=== PATIENT | female | born 1955 | race Caucasian/White ===

== ENCOUNTER → 2016-06-08 | Outpatient (CLI) | payer OTHER ==
--- NOTE | 2016-06-08 10:16 | CT ---
EXAMINATION TYPE: CT sinus wo con DATE OF EXAM: 06/08/2016 9:57 AM COMPARISON: NONE HISTORY: 61 year-old female chronic sinusitis, pain CT DLP: 622.3 mGycm Automated exposure control for dose reduction was used. TECHNIQUE: Noncontrast axial views of the paranasal sinuses were obtained. Coronal reconstructions pe rformed. FINDINGS: There is mild mucosal thickening within the right sphenoid sinus. Trace mucosal thickening along the roof of the left maxillary sinus. Otherwise, the paranasal sinuses are clear. There is no air-fluid level. Reactive neville- osteogenesis is not seen. There is no destruction of the osseous thompson of the paranasal sinuses. The osteomeatal complexes are patent. However, ostia are noted involving both medial right maxillary sinus thompson. These could be on a postsurgical or congenital basis, refer to axial image 13 and avina l image 17. On the left, there is some mucosal thickening involving the inferior turbinate which proj ects through the ostium. Slight rightward nasal septal deviation. The imaged brain, sella, skull base and orbits are normal in appearance. Visualized mastoid air cells and middle ear cavities are well pneumatized. IMPRESSION: 1. Bilateral ostia along the inferior medial maxillary sinus thompson could be on a postsurgical or barry enital basis. Refer to axial image 13 and coronal image 17. 2. Mild mucosal thickening right sphenoid sinus and trace mucosal thickening along the roof of the le ft maxillary sinus. Otherwise, no significant paranasal sinus disease. 3. Slight rightward nasal septal deviation.
--- NOTE | 2016-06-08 11:38 | XR ---
EXAMINATION TYPE: XR chest 2V DATE OF EXAM: 06/08/2016 10:46 AM COMPARISON: EXAMINATION TYPE: XR chest 2V DATE OF EXAM: 06/08/2016 10:46 AM COMPARISON: NONE HISTORY: Cough TECHNIQUE: Frontal and lateral views of the chest are obtained. FINDINGS: There is no focal air space opacity, pleural effusion, or pneumothorax seen. The cardiac silhouette size is within normal limits. The osseous structures are intact. Hyperinflation suggests COPD. IMPRESSION: No acute cardiopulmonary process. TECHNIQUE: PA and lateral views submitted. HISTORY: FINDINGS: The lungs are clear and there is no pneumothorax, pleural effusion, or focal pneumonia. IMPRESSION: 1. No acute process.
--- NOTE | 2016-06-08 18:08 | FL ---
EXAMINATION: Cervical and Thoracic Esophagram DATE OF EXAM: 06/08/2016 10:47 AM CLINICAL INDICATION: 61-year-old female with chronic cough, hoarseness, laryngitis, polyps on direct visualization. Dysphagia. COMPARISON: None Total Fluoroscopy Time: 1 minute. FINDINGS: The swallowing mechanism is normal and hypopharyngeal anatomy is preserved. The cervical and thoracic portions have a normal course and caliber and normal motility. The mucosa is normal and no persistent filling defect is encountered. No hiatal hernia is present. No gastroesophageal reflux could not be elicited with Valsalva or positional maneuvers. IMPRESSION: Unremarkable double contrast esophagram.
== END | disposition home or self-care (01) ==
LOC: RADCTMAIN 09:26
PROVIDERS: ATTEND Otolaryngology
DX: J34.89 Other specified disorders of nose and nasal sinuses (principal); J34.2 Deviated nasal septum; J32.9 Chronic sinusitis, unspecified; R13.10 Dysphagia, unspecified; R49.0 Dysphonia; R05 Cough; Z98.890 Other specified postprocedural states
CPT/HCPCS: 70486; 71020; 74220

== ENCOUNTER → 2017-01-19 | Outpatient (CLI) | payer OTHER ==
--- NOTE | 2017-01-19 09:05 | CT ---
EXAMINATION TYPE: CT chest wo con DATE OF EXAM: 01/19/2017 COMPARISON: Chest x-ray June 08, 2016 HISTORY: Shortness of breath CT DLP: 491 mGycm. Automated Exposure Control for Dose Reduction was Utilized. TECHNIQUE: CT scan of the thorax is performed without IV contrast. FINDINGS: LUNGS: Mild underlying emphysematous change with mild apical pleural/parenchymal fibrosis bilaterally and scattered small bleb formation with some peripheral reticulation. There is additional bibasilar linear scarring. No suspicious groundglass opacity or consolidation is seen. No suspicious pleural ef fusion or pneumothorax is seen bilaterally. MEDIASTINUM: Lack of IV contrast is noted to limit evaluation for mediastinal and especially hilar ad enopathy. There are some scattered prominent but probably subcentimeter lymph nodes, largest pericari nal region measures 1.4 x 0.8 cm. No definitive greater than 1 cm lymph nodes are seen. No cardiomeg sarah or pericardial effusion is seen. OTHER: There is fairly moderate multilevel spurring in the thoracic spine. IMPRESSION: Mild chronic parenchymal and emphysematous changes as detailed above. No acute pulmonary process.
== END | disposition home or self-care (01) ==
LOC: RADCTMAIN 08:21
PROVIDERS: ATTEND Internal Medicine Pulmonary Disease
DX: J43.9 Emphysema, unspecified (principal); J84.10 Pulmonary fibrosis, unspecified
CPT/HCPCS: 71250

== ENCOUNTER 2017-05-19 10:51 | Day surgery (SDC) | payer OTHER ==
[2017-05-16 09:53] VITALS: BMI 23.7
[~2017-05-19 10:51] MED LIST: DEXAMETHASONE SOD PHOSPHATE 10 MG/ML 1 ML VIAL IV ONE; DEXAMETHASONE SOD PHOSPHATE 4 MG/ML 1 ML VIAL IV ONE; FAMOTIDINE 20 MG/2 ML VIAL IV ONE; HYDROmorphone 0.5 MG/0.5 ML SYRINGE IVP PRN; LACTATED RINGERS 1,000 ML IV SCH; ONDANSETRON 4 MG/2 ML VIAL IVP ONE; ceFAZolin IN SWFI 2 GM/20 ML SYRINGE IVP ONE
[2017-05-19 13:46] VITALS: RESP 16
[2017-05-19] MEDS ORDERED: LIDOCAINE 1% 20 ML VIAL (10MG/ML) FOR IV START INTRADERMA ONE (13:50)
[2017-05-19] MEDS ORDERED: SUCCINYLCHOLINE CHLORIDE 100 MG/5 ML SYR IV ONE (14:56)
[2017-05-19] MEDS ORDERED: fentaNYL (PF) 50 MCG/ML 2 ML AMP ONE (14:56)
[2017-05-19] MEDS ORDERED: ROCURONIUM BROMIDE 10 MG/ML 10 ML VIAL IV ONE (14:56)
[2017-05-19] MEDS ORDERED: MIDAZOLAM 2 MG/2 ML VIAL ONE (14:56)
[2017-05-19] MEDS ORDERED: PROPOFOL 10 MG/ML 20 ML VIAL IV ONE (14:56)
[2017-05-19] MEDS ORDERED: NEOSTIGMINE 1 MG/ML 10 ML VIAL ONE (14:56)
[2017-05-19] MEDS ORDERED: GLYCOPYRROLATE 0.2 MG/ML 2 ML VIAL ONE (14:56)
[2017-05-19] MEDS ORDERED: EPINEPHrine 1 MG/ML (MDV) 30 ML VIAL TOPICAL ONE (15:27)
[2017-05-19] MEDS ORDERED: FLUORESCEIN STRIPS 1 MG STRIP MISCELLANE ONE (15:28)
[2017-05-19] MEDS ORDERED: LACTATED RINGERS 1,000 ML IV ONE (15:43)
[2017-05-19 15:57] VITALS: TEMP 97.4
--- NOTE | 2017-05-19 16:12 | P.OP ---
Date of Procedure: 05/19/17 Preoperative Diagnosis: Bilateral vocal cord polyps Postoperative Diagnosis: Same Procedure(s) Performed: Direct microscopic laryngoscopy with removal of left vocal cord polyp Anesthesia: HEIDIA Surgeon: Eliazar Chirinos Estimated Blood Loss (ml): 5 Pathology: other (Left vocal cord polyp) Condition: stable Disposition: PACU Indications for Procedure: This patient has bilateral vocal cord polyps with severe dysphonia. She is extremely hoarse. She promises that she will not smoke after vocal cord surgery as she knows the complications if she smokes. Therefore she wishes to proceed forward with a left-sided unilateral vocal cord polypectomy. We will be removing the right side in 6 weeks. All risks, benefits, and alternative therapies were discussed. Consent was obtained and all questions were answered. She understands that if she talks were smokes she will have vocal cord scarring and permanent hoarseness. Operative Findings: Patient has massive bilateral vocal cord polyps. The left side was removed the right side of his left untouched. Description of Procedure: Patient was taken to the operative room and placed in the supine position. A general inhalation anesthetic was administered the patient by mask and subsequently intubated with a cuffed endotracheal tube by the department of anesthesia with a functioning IV line in place. The patient was monitored throughout the entire case by the department of anesthesia. A #5 [employer] tube was placed. The entire Kristi and hypopharynx was evaluated and magnified with a Zeiss microscope. This was placed on suspension on a Lewy after the entire examination. Patient was found have bilateral vocal cord polyps. With use of a die trimmer blade the left vocal cord polyp was removed. Hemostasis was obtained with topical adrenaline. Patient tolerated this well and follow-up will be in the office in 1 week. The patient is to contact me if any problems should arise. Patient is going home on total voice rest. Smoking cessation was strongly encouraged.
[2017-05-19 16:47] VITALS: BP 133/61; PULSE 86
== END 2017-05-19 17:40 | disposition home or self-care (01) ==
LOC: OR 10:51
PROVIDERS: ATTEND Otolaryngology
DX: J38.1 Polyp of vocal cord and larynx (principal); I73.00 Raynaud's syndrome without gangrene; J44.9 Chronic obstructive pulmonary disease, unspecified; F17.210 Nicotine dependence, cigarettes, uncomplicated; K21.9 Gastro-esophageal reflux disease without esophagitis; Z79.899 Other long term (current) drug therapy
CPT/HCPCS: 31541; J0171; J2250; J1100; J2710; J2405; J3010; J0330; J2704; J0690; 88305

== ENCOUNTER 2017-07-28 06:48 | Day surgery (SDC) | payer OTHER ==
[2017-07-25 09:52] VITALS: BMI 24.6
[~2017-07-28 06:48] MED LIST changes: -DEXAMETHASONE SOD PHOSPHATE 10 MG/ML 1 ML VIAL IV ONE; +MORPHINE SULFATE 4 MG/ML SYRINGE IV PRN; +ONDANSETRON 4 MG/2 ML VIAL IVP PRN
[2017-07-28 07:16] VITALS: RESP 16; TEMP 98.7
[2017-07-28] MEDS ORDERED: DEXAMETHASONE SOD PHOSPHATE 10 MG/ML 1 ML VIAL IV ONE (07:16)
[2017-07-28] MEDS ORDERED: NEOSTIGMINE 1 MG/ML 10 ML VIAL ONE (08:36)
[2017-07-28] MEDS ORDERED: GLYCOPYRROLATE 0.2 MG/ML 2 ML VIAL ONE (08:36)
[2017-07-28] MEDS ORDERED: LIDOCAINE 1% INJ 10MG/ML (20 ML MDV) ONE (08:36)
[2017-07-28] MEDS ORDERED: fentaNYL (PF) 50 MCG/ML 2 ML AMP ONE (08:36)
[2017-07-28] MEDS ORDERED: DEXAMETHASONE SOD PHOS (MDV) 100 MG/10 ML VIAL ONE (08:36)
[2017-07-28] MEDS ORDERED: PROPOFOL 10 MG/ML 20 ML VIAL IV ONE (08:36)
[2017-07-28] MEDS ORDERED: MIDAZOLAM 2 MG/2 ML VIAL ONE (08:36)
[2017-07-28] MEDS ORDERED: SUCCINYLCHOLINE CHLORIDE 100 MG/5 ML SYR IV ONE (08:36)
[2017-07-28] MEDS ORDERED: ROCURONIUM BROMIDE 10 MG/ML 10 ML VIAL IV ONE (08:36)
--- NOTE | 2017-07-28 09:33 | P.OP ---
Date of Procedure: 07/28/17 Preoperative Diagnosis: Vocal cord polyps Postoperative Diagnosis: Same Procedure(s) Performed: Direct microscopic laryngoscopy and removal of vocal cord polyps Anesthesia: MIGUEL Surgeon: Eliazar Chirinos Estimated Blood Loss (ml): 0 Pathology: other (vocal cord) Condition: stable Disposition: PACU Indications for Procedure: Patient had vocal cord polyps that were removed on the right side less than with some left-sided removal. We left the left anterior vocal cord polyps in place for definitive removal. The patient states that she has cut back on smoking. Patient voice is improved. Operative Findings: Left anterior vocal cord polyp removed was a small polypoid growth on the right posterior cord. Nothing looks malignant Description of Procedure: This patient was taken to the operative room and placed in the supine position. A general inhalation anesthetic was administered the patient by mask and subsequently intubated with a microlaryngoscopy tube. A tooth guard was placed and a Jako laryngoscope was placed into the patient's mouth with care to avoid any trauma to the lips teeth gums and tongue. Mouth was opened tongue was depressed and the entire oropharynx and hypopharynx was evaluated including the base the tongue lateral pharynx vallecula, epiglottis, true and false vocal cords, postcricoid space, piriform sinuses bilaterally etc. etc. This was placed on suspension on a Lewy and the vocal cords were visualized under microscopic visualization utilizing a Zeiss microscope. With use of biopsy forceps the polyps were removed and the patient tolerated this well. The patient will be sent home on voice rest. Patient is to contact me if any problems should arise.
[2017-07-28 10:29] VITALS: BP 115/76; PULSE 66
== END 2017-07-28 10:45 | disposition home or self-care (01) ==
LOC: OR 06:48
PROVIDERS: ATTEND Otolaryngology
DX: J38.1 Polyp of vocal cord and larynx (principal); Z87.891 Personal history of nicotine dependence; Z79.2 Long term (current) use of antibiotics; Z79.51 Long term (current) use of inhaled steroids; Z79.899 Other long term (current) drug therapy
CPT/HCPCS: 31541; 88305; J2250; J1100 ×2; J2710; J2405; J2001; J3010; J0330; J2704; J0690

== ENCOUNTER → 2017-08-10 | Outpatient (CLI) | payer OTHER ==
--- NOTE | 2017-08-10 08:31 | CT ---
EXAMINATION TYPE: CT chest w con DATE OF EXAM: 08/10/2017 COMPARISON: 01/19/2017 HISTORY: Mediastinal mass CT DLP: 573 mGycm Automated exposure control for dose reduction was used. CONTRAST: CT scan of the chest is performed with IV Contrast, patient injected with 100 ml mL of Isovue 300. FINDINGS: LUNGS: Mild emphysematous changes appreciated. The lungs are grossly clear, there is no concerning pa renchymal mass or nodule identified. There is no pleural effusion or pneumothorax seen. The trache obronchial tree is patent. MEDIASTINUM: There are no greater than 1 cm hilar or mediastinal lymph nodes. No pericardial effusi on is seen. Thoracic aorta is of normal caliber. The heart is not enlarged. UPPER ABDOMEN: No significant abnormality appreciated. OTHER: No additional significant abnormality is seen. IMPRESSION: 1. Mild emphysematous changes. 2. No evidence for mediastinal mass.
== END | disposition home or self-care (01) ==
LOC: RADCTMAIN 07:04
PROVIDERS: ATTEND Thoracic Surgery (Cardiothoracic Vascular Surgery)
DX: J43.9 Emphysema, unspecified (principal)
CPT/HCPCS: 71260; Q9967

== ENCOUNTER → 2017-10-18 | Outpatient (CLI) | payer OTHER ==
--- NOTE | 2017-10-19 10:12 | MM ---
Reason for exam: screening (asymptomatic). Last mammogram was performed 8 years and 8 months ago. History: Patient is postmenopausal. Family history of breast cancer in paternal aunt. Benign excisional biopsy of the left breast. Physical Findings: A clinical breast exam by your physician is recommended on an annual basis and results should be correlated with mammographic findings. MG 3D Screening Mammo W/Cad Bilateral CC and MLO view(s) were taken. Prior study comparison: March 28, 2014, mammogram, performed at [place]. November 11, 2011, mammogram, performed at [place]. February 14, 2009, bilateral digital screening mammogram. August 21, 2007, bilateral digital screening mammogram. The breast tissue is heterogeneously dense. This may lower the sensitivity of mammography. There is chronic nodularity in the left breast. There is no discrete abnormality. ASSESSMENT: Benign, BI-RAD 2 RECOMMENDATION: Routine screening mammogram of both breasts in 1 year.
== END | disposition home or self-care (01) ==
LOC: RADMAMWWP 08:00
PROVIDERS: ATTEND Family Medicine
DX: Z12.31 Encounter for screening mammogram for malignant neoplasm of breast (principal)
CPT/HCPCS: 77063; 77067

== ENCOUNTER → 2018-09-29 | Day surgery (SDC) | payer OTHER ==
[2018-09-27 12:14] VITALS: BMI 24.6
[~2018-09-29] MED LIST changes: -DEXAMETHASONE SOD PHOSPHATE 4 MG/ML 1 ML VIAL IV ONE; -FAMOTIDINE 20 MG/2 ML VIAL IV ONE; -HYDROmorphone 0.5 MG/0.5 ML SYRINGE IVP PRN; +LIDOCAINE 1% 20 ML VIAL (10MG/ML) FOR IV START INTRADERMA ONE; +MIDAZOLAM 2 MG/2 ML VIAL ONE; -MORPHINE SULFATE 4 MG/ML SYRINGE IV PRN; -ONDANSETRON 4 MG/2 ML VIAL IVP ONE; -ONDANSETRON 4 MG/2 ML VIAL IVP PRN; +PROPOFOL 10 MG/ML 20 ML VIAL IV ONE; -ceFAZolin IN SWFI 2 GM/20 ML SYRINGE IVP ONE
[2018-09-29 11:22] VITALS: TEMP 96.4
--- NOTE | 2018-09-29 12:50 | P.GSHP ---
History of Present Illness H&P Date: 09/29/18 Chief Complaint: Colon polyps Patient here today for colonoscopy. Last colonoscopy 5 years. Patient has a personal history of colon polyps. Patient's mother also has a history of multiple polyps. No bowel complaints. Past Medical History Past Medical History: COPD, Osteoarthritis (OA) Additional Past Medical History / Comment(s): HAS DANITZA (BONE SPURS INTO SINUS) EMPHYSEMA, POLYPS ON VOCAL CORD History of Any Multi-Drug Resistant Organisms: None Reported Past Surgical History: Hysterectomy, Tonsillectomy Additional Past Surgical History / Comment(s): LAPAROTOMY, LAPAROSCOPIC EXAM, CONE BIOPSY, COLONOSCOPY, LEFT FEMORAL HERNIA REPAIR, VOCAL CHORD POLYP Past Anesthesia/Blood Transfusion Reactions: No Reported Reaction Past Psychological History: Depression Smoking Status: Former smoker Past Alcohol Use History: Daily Additional Past Alcohol Use History / Comment(s): QUIT SMOKING 05/13/17 STARTED SMOKING AT AGE 36 SMOKED 1/2PPD. Past Drug Use History: None Reported - Past Family History Mother Family Medical History: Deep Vein Thrombosis (DVT) Medications and Allergies Home Medications Medication Instructions Recorded Confirmed Type Aspirin/Acetaminophen/Caffeine 2 each PO DAILY PRN 04/07/17 09/27/18 History [Excedrin Extra Strength Caplet] Citalopram Hydrobromide [CeleXA] 10 mg PO 1900 04/07/17 09/27/18 History Allergies Allergy/AdvReac Type Severity Reaction Status Date / Time No Known Allergies Allergy Verified 09/27/18 12:10 Surgical - Exam Vital Signs Temp Pulse Resp BP Pulse Ox 96.4 F L 89 18 106/77 100 09/29/18 11:20 09/29/18 11:20 09/29/18 11:20 09/29/18 11:20 09/29/18 11:20 Physical exam: General: Well-developed, well-nourished HEENT: Normocephalic, sclerae nonicteric Abdomen: Nontender, nondistended Extremities: No edema Neuro: Alert and oriented Assessment and Plan (1) Colon cancer screening Narrative/Plan: Will proceed with colonoscopy. Current Visit: Yes Status: Acute Code(s): Z12.11 - ENCOUNTER FOR SCREENING FOR MALIGNANT NEOPLASM OF COLON SNOMED Code(s): 560756818
--- NOTE | 2018-09-29 13:13 | P.PCN ---
Date of Procedure: 09/29/18 Procedure(s) Performed: PREOPERATIVE DIAGNOSIS: Colon cancer screening, history of polyps POSTOPERATIVE DIAGNOSIS: Sigmoid colon polyp, diverticulosis PROCEDURE: Colonoscopy snare polypectomy ANESTHESIA: MAC SURGEON: Manoj Rodríguez M.D. SPECIMENS: Polyp ENDOSCOPIC PROCEDURE: The patient was placed on the endoscopy table in the left decubitus position. The Olympus colonoscope was inserted into the anus and passed under direct visualization to the base of the cecum. The appendiceal orifice was visualized. From that point the scope was slowly withdrawn inspecting all surfaces carefully. There were no neoplastic inflammatory or polypoid lesions throughout the cecum, ascending, transverse, and descending colon. In the sigmoid colon a small polyp was identified and removed using the snare with cautery technique. The remainder of the sigmoid and rectum appeared normal. There was mild left-sided diverticulosis present. Digital rectal examination was normal. The patient was taken to the recovery room in stable condition per anesthesia guidelines. RECOMMENDATIONS: Await biopsy results. Follow-up colonoscopy 5 years.
[2018-09-29 13:18] VITALS: RESP 17
[2018-09-29 13:44] VITALS: BP 114/62; PULSE 77
== END ==
LOC: ORWHC2ENDO 10:58
PROVIDERS: ATTEND Surgery
DX: Z12.11 Encounter for screening for malignant neoplasm of colon (principal); D12.5 Benign neoplasm of sigmoid colon; K57.30 Diverticulosis of large intestine without perforation or abscess without bleeding; Z86.010 Personal history of colon polyps; F32.9 Major depressive disorder, single episode, unspecified; J43.9 Emphysema, unspecified; M19.90 Unspecified osteoarthritis, unspecified site; Z87.891 Personal history of nicotine dependence; F39 Unspecified mood [affective] disorder; Z79.899 Other long term (current) drug therapy
CPT/HCPCS: 88305; 45385; J2250; J2704

== ENCOUNTER → 2020-01-03 | Day surgery (SDC) | payer OTHER ==
[2020-01-01 12:59] VITALS: BMI 24.3
[~2020-01-03] MED LIST changes: +LIDOCAINE 1% (10MG/ML) FOR IV START INTRADERMA PRN; -LIDOCAINE 1% 20 ML VIAL (10MG/ML) FOR IV START INTRADERMA ONE; +LIDOCAINE 1% INJ 10MG/ML (20 ML MDV) ONE; -MIDAZOLAM 2 MG/2 ML VIAL ONE
[2020-01-03 09:36] VITALS: RESP 16; TEMP 96.5
--- NOTE | 2020-01-03 11:09 | P.PCN ---
Date of Procedure: 01/03/20 Description of Procedure: Brief history: Patient is a 64-year-old female who presents for evaluation with EGD and colonoscopy for symptoms of dyspepsia and irritable bowel syndrome. Patient reports multiple loose bowel movements every day. She reports every day is likely bowel prep. Last colonoscopy for screening purposes in 2019 with the surgical service. The patient does have a history of tobacco abuse. She also takes Excedrin. Procedure performed: Esophagogastroduodenoscopy with biopsy Colonoscopy with polypectomy Estimated blood loss: Minimal. Preoperative diagnosis: Dyspepsia, IBS, altered bowel function, diarrhea Anesthesia: MAC Procedure: After informed consent was obtained from the patient was brought into the endoscopy unit and IV sedation was administered by anesthesia under continuous monitoring. Initially upper endoscopy was done. The Olympus GF 190 video endos cope was inserted into the mouth and esophagus intubated without any difficulty and was gradually advanced into the stomach and duodenum and carefully examined. The bulb and second part of the duodenum appeared normal, with biopsies taken. The scope was then withdrawn into the stomach adequately insufflated with air and upon careful examination the antrum and body, cardia and fundus appeared no rmal with mild scattered erythema with biopsies of antrum and body taken. The scope was then withdrawn into the esophagus. The GE junction was located at 37 cm to the incisors with biopsies taken. 3 cm hiatal hernia noted. It appeared regular with no erythema erosions or ulcerations. Rest of the esophagus appeared normal. Patient tolerated the procedure well. At this time the patient continued to remain sedation. Initial digital rectal examination was normal. Olympus CF 190 video colonoscope was then inserted into the rectum and gradually advanced to the cecum without any difficulty. Careful examination was performed as the scope was gradually being withdrawn. The prep was excellent. The cecum, ascending colon, transverse colon, descending colon, sigmoid colon and rectum appeared normal. Diminutive 2 mm sigmoid polyp removed with cold forcep polypectomy. Redundant colon. Random biopsies taken of the right and left colon in the setting of altered bowel function. Retroflexion was performed in the rectum and no lesions were noted, low-grade internal hemorrhoids. Patient tolerated the procedure well. Impression: 1. Mild gastritis. Biopsies of the duodenum, antrum and body and GE junction. Hiatal hernia. 2. Diminutive sigmoid polyp removed with cold forceps. Low-grade internal hemorrhoids. Otherwise normal-appearing colon with random biopsies taken of the right colon in the setting of altered bowel function. Recommendations: Findings of this examination were discussed with the patient. Okay to resume diet. Okay to resume medications. Await biopsy results. Patient will be given a follow-up in the GI clinic in the next 1-2 weeks for continued symptom management.
[2020-01-03 11:39] VITALS: BP 121/74; PULSE 63
== END ==
LOC: ORWHC2ENDO 08:57
PROVIDERS: ATTEND Internal Medicine
DX: K52.839 Microscopic colitis, unspecified (principal); K44.9 Diaphragmatic hernia without obstruction or gangrene; K22.8 Other specified diseases of esophagus; K29.70 Gastritis, unspecified, without bleeding; Q43.8 Other specified congenital malformations of intestine; K64.8 Other hemorrhoids; K58.0 Irritable bowel syndrome with diarrhea; Z79.899 Other long term (current) drug therapy; Z90.710 Acquired absence of both cervix and uterus; Z98.890 Other specified postprocedural states; J44.9 Chronic obstructive pulmonary disease, unspecified; Z87.891 Personal history of nicotine dependence
CPT/HCPCS: 88305; 88313; 45380; 43239; J2001; J2704

== ENCOUNTER → 2022-01-07 | Outpatient (CLI) | payer MEDICARE, OTHER ==
--- NOTE | 2022-01-08 07:09 | MM ---
Reason for Exam: Screening (asymptomatic). Last mammogram was performed 4 year(s) and 2 month(s) ago. Patient History: Menarche at age 18. First Full-Term at age 22. Hysterectomy at age 56. Postmenopausal. Patient has history of breast feeding. Benign Excisional Biopsy on the left side. Paternal aunt had breast cancer. Paternal cousin had breast cancer. Risk Values: Andria 5 year model risk: 1.6%. NCI Lifetime model risk: 6.1%. Prior Study Comparison: 11/11/2011 Screening Mammogram, [place]. 03/28/2014 Screening Mammogram, [place]. 10/18/2017 Bilateral Screening Mammogram, [facility]. Tissue Density: The breast tissue is heterogeneously dense. This may lower the sensitivity of mammography. Findings: Analyzed By CAD. There is no suspicious group of microcalcifications or new suspicious mass in either breast. Overall Assessment: Benign, BI-RAD 2 Management: Screening Mammogram of both breasts in 1 year. A clinical breast exam by your physician is recommended on an annual basis and results should be correlated with mammographic findings. Electronically signed and approved by: Zaid Rico M.D. Radiologis
== END | disposition home or self-care (01) ==
LOC: RADMAMWWP 13:17
PROVIDERS: ATTEND Family Medicine
DX: Z12.31 Encounter for screening mammogram for malignant neoplasm of breast (principal)
CPT/HCPCS: 77063; 77067

== ENCOUNTER → 2023-01-14 | Outpatient (CLI) | payer MEDICARE, OTHER ==
--- NOTE | 2023-01-14 11:39 | CTL ---
EXAMINATION TYPE: CT Low Dose Lung DATE OF EXAM ORDERED: 01/14/2023 HISTORY: 67-year-old female Z12.2, F17.210, personal history of tobacco use, current smoker with less than 33 pack-year history. Lung cancer screening CT DLP: 98.[address] CTDI: 2.5 mGy Automated exposure control for dose reduction was used. SCREENING VISIT: Baseline COMPARISON: 08/10/2017 TECHNIQUE: Low dose computed tomography scan was performed through the chest with coronal and sagitta l reconstructions. CT DIAGNOSTIC QUALITY: Satisfactory FINDINGS: The heart is normal size without pericardial effusion. Ectatic ascending aorta 3.8 cm versus 3.5 cm, previously. Conventional vessel branching anatomy. A few nonenlarged mediastinal lymph nodes measuring up to 8 mm. Precarinal lymph node measures 9 mm, unchanged. No thoracic lymphadenopathy by CT size criteria. * There is a fat-containing right-sided Bochdalek hernia with some adjacent bandlike atelectasis or scarring. * Additional bandlike probable scarring at the left base. * Mild diffuse bronchial wall thickening. Mild emphysematous change. * Mild biapical pleural-parenchymal scarring. Additional scattered small areas of pleural parenchyma l scarring elsewhere in the lungs, for example, periphery of the right mid to lower lung, axial image 183. * Tiny calcified granuloma at the left base. * No suspicious pulmonary nodules are seen. Visualized upper abdomen shows no gross abnormality. Bones: Mild degenerative disc disease lower thoracic spine. Normal variant sternal foramen. IMPRESSION: 1. LungRADS 2, benign. Tiny calcified nodule relating to prior granulomatous disease and scattered ar eas of pleural parenchymal scarring. No suspicious pulmonary nodules seen. 2. COPD with mild emphysema. Recommend smoking cessation. CT LUNG RAD AND CT CHEST RECOMMENDATION: Lung-Rad 2 Benign Appearance or Behavior: Continue annual sc reening with LDCT in 12 months. S Modifier (other clinically significant findings): None
== END | disposition home or self-care (01) ==
LOC: RADCTMAIN 08:02
PROVIDERS: ATTEND Family Medicine
DX: Z12.2 Encounter for screening for malignant neoplasm of respiratory organs (principal); F17.210 Nicotine dependence, cigarettes, uncomplicated; J43.9 Emphysema, unspecified; J98.4 Other disorders of lung; R91.1 Solitary pulmonary nodule
CPT/HCPCS: 71271

== ENCOUNTER → 2023-04-27 | Outpatient (CLI) | payer MEDICARE, OTHER ==
[2023-04-27 18:55] LABS: HGB 13.9 g/dL (12.0-15.0); MCH 29.3 pg (27.0-32.0); MCHC 32.3 g/dL (32.0-37.0); MCV 90.7 FL (80.0-97.0); Mean Platelet Volume 10.5 FL (9.5-12.2); NRBC Per 100 WBC 0 X 10*3/uL (0.00-0.01); Platelet Count 359 X 10*3/uL (140-440); RBC 4.74 X 10*6/uL (4.10-5.20); RDW 13.8 % (11.5-14.5); WBC 8.67 X 10*3/uL (4.50-10.00)
== END | disposition home or self-care (01) ==
LOC: LABPAT 13:10
PROVIDERS: ATTEND Surgery
DX: Z01.812 Encounter for preprocedural laboratory examination (principal); I10 Essential (primary) hypertension
CPT/HCPCS: 85027; 93005

== ENCOUNTER 2023-05-02 11:01 | Day surgery (SDC) | payer MEDICARE, OTHER ==
[2023-04-26 09:53] VITALS: BMI 19.0
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
[~2023-05-02 11:01] MED LIST changes: +ACETAMINOPHEN TAB 500 MG TAB PO PRN; +DEXAMETHASONE SOD PHOSPHATE 4 MG/ML 1 ML VIAL IV ONE; +HEPARIN SODIUM,PORCINE 5,000 UNIT/ML 1 ML VIAL SQ PRN; +HYDROmorphone 0.5 MG/0.5 ML SYRINGE IVP PRN; -LACTATED RINGERS 1,000 ML IV SCH; -LIDOCAINE 1% (10MG/ML) FOR IV START INTRADERMA PRN; -LIDOCAINE 1% INJ 10MG/ML (20 ML MDV) ONE; +MIDAZOLAM 2 MG/2 ML VIAL IV PRN; +ONDANSETRON 4 MG/2 ML VIAL IVP ONE; -PROPOFOL 10 MG/ML 20 ML VIAL IV ONE
[2023-05-02] MEDS: LACTATED RINGERS 1,000 ML IV SCH ×2 (11:18→16:00)
[2023-05-02] MEDS ORDERED: ONDANSETRON 4 MG/2 ML VIAL IVP ONE (11:36)
[2023-05-02] MEDS ORDERED: DEXAMETHASONE SOD PHOSPHATE 4 MG/ML 1 ML VIAL IVP ONE (11:36)
[2023-05-02 11:48] VITALS: RESP 16
[2023-05-02] MEDS ORDERED: IPRATROPIUM-ALBUTEROL 3 ML NEB ONE (12:21)
[2023-05-02] MEDS ORDERED: DUOVISC KIT (BLUE BOX) INTRAOCULA ONE (12:28)
[2023-05-02 12:54] LABS: African American GFR (CKD) >90 (>60 ml/min/1.73 sqM); Anion Gap 6 mmol/L; Blood Urea Nitrogen 15 mg/dL (7-17); Calcium 9.4 mg/dL (8.4-10.2); Carbon Dioxide 23 mmol/L (22-30); Chloride 109 mmol/L (98-107); Glucose 94 mg/dL (74-99); Non-African American GFR(CKD) >90 (>60 ml/min/1.73 sqM); Potassium 4.1 mmol/L (3.5-5.1); Sodium 138 mmol/L (137-145)
[2023-05-02] MEDS ORDERED: GLYCOPYRROLATE 0.2 MG/ML 2 ML VIAL ONE (14:42)
[2023-05-02] MEDS ORDERED: NEOSTIGMINE 1 MG/ML 10 ML VIAL ONE (14:42)
[2023-05-02] MEDS ORDERED: ROCURONIUM 10 MG/ML (5 ML VIAL) IV ONE (14:42)
[2023-05-02] MEDS ORDERED: PROPOFOL 10 MG/ML 20 ML VIAL IV ONE (14:42)
[2023-05-02] MEDS ORDERED: LIDOCAINE 1% INJ 10MG/ML (20 ML MDV) ONE (14:42)
[2023-05-02] MEDS ORDERED: SUCCINYLCHOLINE CHLORIDE 200 MG/10 ML VIAL IV ONE (14:42)
[2023-05-02] MEDS ORDERED: MIDAZOLAM 2 MG/2 ML VIAL ONE (14:42)
[2023-05-02] MEDS ORDERED: fentaNYL (PF) 50 MCG/ML 2 ML AMP ONE (14:42)
[2023-05-02] MEDS ORDERED: BUPIVACAINE (PF) 0.25% 30 ML VIAL SQ ONE ×3 (14:57→15:21)
--- NOTE | 2023-05-02 15:33 | P.OP ---
Date of Procedure: 05/02/23 Procedure(s) Performed: PREOPERATIVE DIAGNOSIS: Incarcerated ventral hernia POSTOPERATIVE DIAGNOSIS: Same PROCEDURE: Open repair incarcerated ventral hernia SURGEON: Dr. Rodríguez ANESTHESIA: General OPERATIVE PROCEDURE DETAILS: Patient placed on the operating table in the supine position. Abdomen was prepped and draped in usual sterile fashion. A vertical incision was then made superior to the pubis. Length of incision 3.5-4 cm. Subcutaneous tissues divided using electrocautery. The patient had a single defect in the midline. Certainly atypical in location. This was probably 3-4 cm superior to the pubic bone. Defect was only 7 mm in size. Fatty tissue able to be reduced into the preperitoneal space without difficulty. Patient was not interested in mesh and given the small size it was easy to omit. All was closed horizontally using 3 separate [id number] 0 Ethibond sutures. The subcu taneous tissues were closed using 3-0 Vicryl sutures. The skin was closed using a running 4-0 Monocryl suture. Skin glue and sterile dressings were applied. HERNIA CHARACTERISTICS: Length: 7 mm Width: 7 mm Type: Incarcerated ventral PREOPERATIVE DISCUSSION ON SMOKING CESSASTION: Yes PREOPERATIVE DISCUSSION ON MORBID OBESITY: Yes PREOPERATIVE DISCUSSION ON APPROPRIATE USE OF NARCOTIC USE: Yes PREOPERATIVE EDUCATION: Multi Modal, Smoking Cessation and Weight Loss with BMI over 35. DISPOSITION: Stable to recovery room
[2023-05-02 15:57] VITALS: TEMP 97.6
[2023-05-02 16:44] VITALS: BP 144/74; PULSE 75
[2023-05-02] MEDS ORDERED: ACETAMINOPHEN TAB 325 MG TAB PO SCH (18:00)
[2023-05-02] MEDS ORDERED: IBUPROFEN 600 MG TAB PO SCH (18:30)
== END 2023-05-02 17:14 | disposition home or self-care (01) ==
LOC: OR 11:01
PROVIDERS: ATTEND Surgery
DX: K43.6 Other and unspecified ventral hernia with obstruction, without gangrene (principal); J44.9 Chronic obstructive pulmonary disease, unspecified; I10 Essential (primary) hypertension; M19.90 Unspecified osteoarthritis, unspecified site; J43.9 Emphysema, unspecified; F32.A Depression, unspecified; J38.1 Polyp of vocal cord and larynx; M48.061 Spinal stenosis, lumbar region without neurogenic claudication; F17.210 Nicotine dependence, cigarettes, uncomplicated; Z90.710 Acquired absence of both cervix and uterus; Z98.890 Other specified postprocedural states; Z79.82 Long term (current) use of aspirin; Z79.899 Other long term (current) drug therapy
CPT/HCPCS: 80048; 49592; J2250; J0330; J1644; J1100; J2710; J0690; J2405; J2001; J3010; J2704; J0665

== ENCOUNTER → 2023-06-03 | Outpatient (CLI) | payer MEDICARE ==
--- NOTE | 2023-06-07 20:00 | MM ---
Reason for Exam: Screening (asymptomatic). Last mammogram was performed 1 year(s) and 5 month(s) ago. Patient History: Menarche at age 18. First Full-Term at age 22. Left ovary removed at age 56. Hysterectomy at age 56. Postmenopausal. Patient has history of breast feeding. Benign Excisional Biopsy on the left side. Paternal aunt had breast cancer, age 50. Risk Values: Andria 5 year model risk: 1.6%. NCI Lifetime model risk: 5.6%. Prior Study Comparison: 03/28/2014 Screening Mammogram, [place]. 10/18/2017 Bilateral Screening Mammogram, [facility]. 01/07/2022 Bilateral MG 3D screening mammo w/cad, [facility]. Tissue Density: The breast tissue is heterogeneously dense. This may lower the sensitivity of mammography. Findings: Analyzed By CAD. There is no suspicious group of microcalcifications or new suspicious mass in either breast. Overall Assessment: Negative, BI-RAD 1 Management: Screening Mammogram of both breasts in 1 year. . Patient should continue monthly self-breast exams. A clinical breast exam by your physician is recommended on an annual basis. This exam should not preclude additional follow-up of suspicious palpable abnormalities. Note on Andria scores and lifetime risk: 1. A Andria score greater than 3% is considered moderate risk. If this is the case, consider specialist referral to assess eligibility for a risk reducing agent. 2. If overall lifetime risk for the development of breast cancer is 20% or higher, the patient may qualify for future screening with alternating mammogram and breast MRI. Electronically signed and approved by: Cassia Sultana M.D. Radiologist
== END | disposition home or self-care (01) ==
LOC: RADMAMWWP 11:14
PROVIDERS: ATTEND Family Medicine
DX: Z12.31 Encounter for screening mammogram for malignant neoplasm of breast (principal); Z80.3 Family history of malignant neoplasm of breast; Z78.0 Asymptomatic menopausal state
CPT/HCPCS: 77063; 77067